=== PATIENT | female | born 1990 | race Caucasian/White ===

== ENCOUNTER → 2019-10-19 | Outpatient (CLI) | payer OTHER ==
[~2019-10-19] MED LIST: IBU600 MG PO; MOTRIN 600600 MG/TAB PO; PERCOCET 325 MG1 TA2 PO; PRENATAL VITAMI1 TA3 PO
== END | disposition still patient (30) ==
LOC: ZCOL.LAB 00:10
DX: Z20.828 Contact with and (suspected) exposure to other viral communicable diseases (principal)

== ENCOUNTER 2019-10-23 23:43 | Outpatient (CLI) | payer MEDICAID ==
[~2019-10-23] VITALS: Ht 167.6 cm; Wt 77.3 kg
[~2019-10-23 23:43] MED LIST changes: -IBU600 MG PO; -PRENATAL VITAMI1 TA3 PO
--- NOTE | 2019-10-23 23:50 | NUR ---
2350- PT PRESENTS TO LDR COMPLAINING OF LEAKING AMNIOTIC FLUID. AMBULATORY TO ROOM LR5, CHANGED INTO GOWN. 2356- EFM X2 APPLIED. PT STATES SHE HAD A GUSH OF CLEAR FLUID AT 2130. STATES SHE IS NOT HAVING CONSISTENT OR PAINFUL CONTRACTIONS. SHE IS FEELING THE BABY MOVE. PLAN OF CARE FOR LABOR CHECK DISCUSSED AND QUESTIONS ANSWERED. 0000- AMNITRACE NEGATIVE, ROM+ COLLECTED. SVE BY THIS NURSE WITH NO POOLING OF FLUID. ROM+ SENT TO LAB. 0010- NURSING ADMISSION HISTORY AND ASSESSMENT COMPLETED. 0045- ROM+ NEGATIVE. PT UPDATED ON PLAN OF CARE. WILL RECHECK CERVIX AND THEN CALL DR. PT AGREEABLE AND QUESTIONS ANSWERED. 0110- PT REPORTS HER CONTRACTIONS ARE ABOUT THE SAME AND NO NEW GUSH OF FLUID. SVE BY THIS NURSE UNCHANGED AND NO FLUID POOLING DURING EXAM. PT OFF MONITORS FOR DISMISSAL. 0112- DR SLAUGHTER CALLED AND UPDATED CHARTED. ORDERS RECEIVED FOR DISMISSAL TO HOME. 0120- DISMISSAL INSTRUCTIONS GIVEN AND PT VERBALIZES UNDERSTANDING. PT DISMISSED TO HOME AMBULATORY ACCOMPANIED BY .
[2019-10-24] MEDS ORDERED: PRENATAL VITAMI1 TA3 PO (00:19)
[2019-10-24 00:30] VITALS: BP 117/66; PULSE 72; TEMP 98.1
== END 2019-10-24 01:20 | disposition home or self-care (01) ==
LOC: LDRO 23:43 → LDR 23:46 → LDRO 10-24 01:20
DX: O42.92 Full-term premature rupture of membranes, unspecified as to length of time between rupture and onset of labor (principal); Z3A.39 39 weeks gestation of pregnancy
CPT/HCPCS: OP

== ENCOUNTER 2019-10-25 07:46 | Inpatient (IN) | payer OTHER ==
[2019-10-25] VITALS (23 sets, daily range): BP systolic 99–113; BP diastolic 52–70; PULSE 63–117; TEMP 97.6–98.4
[~2019-10-25] VITALS: Ht 165.1 cm; Wt 80.5 kg
[~2019-10-25 07:46] MED LIST changes: +PRENATAL VITAMI1 TA3 PO
--- NOTE | 2019-10-25 08:30 | NUR ---
0750- Pt arrives on unit ambulatory for scheduled induction with , [place]. Oriented to room. Pt into bathroom to change into gown. 0757- EFM and TOCO on and tracing, O2 sat monitor on and tracing maternal HR. VSS. Assessment completed. IV start without complications, Labs obtained. Pt tolerated well. Call light at bedside.
[2019-10-25 08:40] LABS: BASO % 0.2 % (0.0-2.0); EOS # 0.2 (0.0-0.7); EOS % 2.3 % (0-4.0); GRAN # 6.5 (1.4-6.5); GRAN % 70.2 % (42.2-75.2); HEMOGLOBIN 11.8 g/dl (12.5-16.0); LYMPH # 1.8 (1.2-3.4); LYMPH % 19.6 % (20.0-51.0); MEAN CELL VOLUME 91 fl (80.0-100.0); MEAN CORPUSCULAR HEMOGLOBIN 31 pg (27.0-31.0); MEAN CORPUSCULAR HGB CONC 34 g/dl (33.0-37.0); MEAN PLATELET VOLUME 12.5 fl (7.4-10.4); MONO # 0.7 (0.1-0.6); MONO % 7.2 % (1.7-9.3); PLATELET COUNT 109 K/mm3 (130-400); REDCELL DISTRIBUTION WIDTH-CV 12.8 % (11.5-14.5)
--- NOTE | 2019-10-25 08:45 | NUR ---
0838- Pt educated on Pitocin, offered birthing ball, rocking chair, standing at side of bed, Pt declines at this time. Pitocin started per policy. 0839- Dr Devi at bedside, discusses plan of care. SVE with AROM, clear, odorless fluid noted. Pt tolerated well.
[2019-10-25 08:52] LABS: HEMATOCRIT 34.5 % (37.0-47.0)
--- NOTE | 2019-10-25 10:30 | NUR ---
1017- Pt repositioned to sitting on side of bed for epidural placement. Nataly, PEAT SHREDDER TENDER at bedside. O2 sat monitor on and tracing maternal HR. 1021- FHR not tracing well due to maternal position, RN remains at bedside. 1025- Test dose, see anesthesia record. 1027- FHR tracing, FHR variable decel noted but tracing scratchy, return to baseline noted after 40 seconds. Pt assisted to LL, FHR adjusted and tracing well. Pt complains of still feeling cramping and vaginal pressure with UCs. Will continue to monitor.
--- NOTE | 2019-10-25 11:05 | NUR ---
1047- Pt complains of increasing vaginal pressure. Pitocin off. SVE by this RN, complete/100/0. 1049- Dr Devi updated, see physician notification. Sophie Payne, Nursery RN at bedside. Room prepped for delivery. 1056- Pt breathing well through contractions, complains of intense pressure. SVE by this RN, +1 station. Pt encouraged to breathe and not push, Pt verbalizes understanding. 1101- Dr Devi at bedside. Pt positioned for delivery, Bottom of bed off. Pt begins pushing with UC. 1105- of viable male . To mother's abd, tended to by nursery RN. Cord clamped and cut. Cord blood obtained by . 1110- Spontaneous delivery of placenta, Pitocin restarted at 333 ml/hr. Fundus massaged to firm by . First degree laceration repaired. Red leah used to empty bladder, estimated 200mls of yellow urine noted. Pericare completed, ice pack to perineum. Pt assisted to high fowlers. Pt comfortable without complaints at this time.
[2019-10-26 01:45] VITALS: BP 89/46; PULSE 57; TEMP 98
[2019-10-26 08:12] VITALS: BP 92/46; PULSE 66; TEMP 97.8
--- NOTE | 2019-10-26 09:19 | NUR ---
Initial visit; Parents thanked Shafting Cleaner for offering congratulations and God's blessings for the of their son. Shafting [employer]er thanked family for choosing [facility].
[2019-10-26] MEDS ORDERED: IBU600 MG PO (09:25)
== END 2019-10-26 14:16 | disposition home or self-care (01) | DRG 806 ==
LOC: LDR 07:46 → OB 11:53
PROVIDERS: ADMIT Obstetrics & Gynecology
PROC: 10907ZC Drainage of Amniotic Fluid, Therapeutic from Products of Conception, Via Natural or Artificial Opening (ICD-10-PCS; principal; 2019-10-25)
PROC: 10E0XZZ Delivery of Products of Conception, External Approach (ICD-10-PCS; 2019-10-25)
PROC: 0HQ9XZZ Repair Perineum Skin, External Approach (ICD-10-PCS; 2019-10-25)
DX: O48.0 Post-term pregnancy (principal); O99.12 Other diseases of the blood and blood-forming organs and certain disorders involving the immune mechanism complicating childbirth; Z37.0 Single live birth; O62.1 Secondary uterine inertia; D69.6 Thrombocytopenia, unspecified; Z3A.40 40 weeks gestation of pregnancy; O70.0 First degree perineal laceration during delivery
CPT/HCPCS: J2590; J2791; J7120